=== PATIENT | female | born 1980 | race Caucasian/White ===

== ENCOUNTER 2017-05-23 17:55 | Emergency (ER) | payer OTHER ==
[2017-05-23] MEDS ORDERED: clonazePAM 0.5 MG TAB PO ONE (20:15)
--- NOTE | 2017-05-23 20:18 | PD ---
HPI Chief Complaint: Psychiatric Symptoms Time Seen by Provider: 20:15 Travel History International Travel<30 days: No Contact w/Intl Traveler<30days: No Traveled to known affect area: No History of Present Illness HPI 36-year-old female that presents to the ED for eval of psychiatric illness. Patient was Deepika acted after she apparently made statements that she didn't know how she was given Librium without her cat which per patient she unfortunately had to put down couple hours before being Deepika acted. Apparently was a family member state this seriously and called the ambulance. Patient states that she does have a history of anxiety and depression but she denies any suicidal ideation. Per patient she is just depressed because of the loss of her cat of 7 years. She denies any medical issues. She states that she is compliant with her medications. Per patient she does not know what's going on. She states that she did drink some alcohol today but she says that she had to come to help her nerves secondary to the loss of her cat. She has no other complaints. She is very tearful on exam. [facility] Past Medical History Anxiety: Yes Depression: Yes Social History Alcohol Use: Yes Tobacco Use: No Substance Use: No Allergies-Medications (Allergen,Severity, Reaction): Coded Allergies: Lortab (Verified Allergy, Mild, 08/31/04) Tylenol #3 (Verified Allergy, Mild, 08/31/04) No Known Allergies (Verified Allergy, Unknown, 08/31/04) Uncoded Allergies: NKA (Allergy, Unknown, 07/15/03) NKDA (Allergy, Unknown, 07/15/03) Review of Systems Except as stated in HPI: all other systems reviewed are Neg Physical Exam Narrative GENERAL: SKIN: Warm and dry. HEAD: Atraumatic. Normocephalic. EYES: Pupils equal and round. No scleral icterus. No injection or drainage. ENT: No nasal bleeding or discharge. Mucous membranes pink and moist. Tongue is midline. No uvula deviation. NECK: Trachea midline. No JVD. CARDIOVASCULAR: Regular rate and rhythm. No murmurs, S3, S4. RESPIRATORY: No accessory muscle use. Clear to auscultation. Breath sounds equal bilaterally. GASTROINTESTINAL: Abdomen soft, non-tender, nondistended. Hepatic and splenic margins not palpable. MUSCULOSKELETAL: Extremities without clubbing, cyanosis, or edema. No obvious deformities. Full range of motion of the upper and lower extremities bilaterally. 2+ pulses bilaterally. NEUROLOGICAL: Awake and alert. No obvious cranial nerve deficits. Motor grossly within normal limits. Five out of 5 muscle strength in the arms and legs. Normal speech. PSYCHIATRIC: Appropriate mood and affect; insight and judgment normal. Data Data Orders Complete Blood Count With Diff (05/23/17 19:57) Comprehensive Metabolic Panel (05/23/17 19:57) Urinalysis - C+S If Indicated (05/23/17 19:57) Ed Urine Pregnancytest Poc (05/23/17 19:57) Psych Screen (05/23/17 19:57) Drug Screen, Random Urine (05/23/17 19:57) Alcohol (Ethanol) (05/23/17 19:57) Clonazepam (Klonopin) (05/23/17 20:15) MDM Medical Decision Making Medical Screen Exam Complete: Yes Emergency Medical Condition: Yes Medical Record Reviewed: Yes Differential Diagnosis Depression versus suicidal ideation versus anxiety versus adjustment disorder versus mood disorder versus bipolar disorder versus schizophrenia versus paranoid disorder versus psychosis versus substance abuse versus alcohol abuse versus alcohol induced psychosis versus homicidality addition versus cutting versus personality disorder Narrative Course 36-year-old female that presents to the ED for evaluation of Poe act. Patient was properly examined and was found to have signs and symptoms consistent with appears to be grieving. No sign of acute distress. Patient denies suicidal ideation. Labs will be drawn. Patient will be medically clear. Okay to be seen by psych. Mental health screening was discussed with the patient. Diagnosis Primary Impression: Grief reaction Wilson Mejia May 23, 2017 20:18
[2017-05-23 20:56] LABS: AUTOMATED NEUTROPHIL # 9.2 TH/MM3 (1.8-7.7); BASOPHIL # 0.1 TH/MM3 (0-0.2); BASOPHIL % 0.7 % (0.0-2.0); EOSINOPHIL # 0.1 TH/MM3 (0-0.4); EOSINOPHIL % 0.7 % (0.0-4.0); HEMATOCRIT 47.1 % (35.0-46.0); HEMO FLAGS DIFF FINAL; LYMPH % 27.3 % (9.0-44.0); LYMPHOCYTE # 3.8 TH/MM3 (1.0-4.8); MEAN CELL VOLUME 87.5 FL (80.0-100.0); MEAN CORPUSCULAR HEMOGLOBIN 29.9 PG (27.0-34.0); MEAN CORPUSCULAR HGB CONC 34.2 % (32.0-36.0); MONO % 4.8 % (0.0-8.0); NEUT % 66.5 % (16.0-70.0); PLATELET COUNT 299 TH/MM3 (150-450); RED BLOOD COUNT 5.38 MIL/MM3 (4.00-5.30); RED CELL DISTRIBUTION WIDTH 14.3 % (11.6-17.2); WHITE BLOOD COUNT 13.8 TH/MM3 (4.0-11.0)
[2017-05-23 20:58] VITALS: BP 145/89; PULSE 100; RESP 17; O2SAT 99
[2017-05-23 21:01] LABS: BLOOD, URINE NEG (NEG); COMMENT (UR) CULT NOT INDICATED; CULTURE IF INDICATED CULT NOT INDICATED; GLUCOSE,URINE NEG (NEG); KETONE, URINE NEG (NEG); MUCUS URINE FEW /lpf (OCC); NITRITE,URINE NEG (NEG); PH, URINE 5.5 (5.0-8.5); SQUAMOUS EPITHELIAL CELL URINE 13 /hpf (0-5); URINE COLOR YELLOW (YELLW/STRAW)
[2017-05-23 21:05] LABS: AMPHETAMINE, URINE NEG (NEG); BARBITURATES, URINE NEG (NEG); COCAINE, URINE NEG (NEG)
[2017-05-23 21:15] LABS: ANION GAP 5 MEQ/L (5-15); AST (GOT) 15 U/L (15-37); BICARBONATE 26.6 MEQ/L (21.0-32.0); BLOOD UREA NITROGEN 8 MG/DL (7-18); CHLORIDE 107 MEQ/L (98-107); GLOMERULAR FILTRATION RATE 80 ML/MIN (>89); POTASSIUM 3.8 MEQ/L (3.5-5.1); SODIUM (NA) 139 MEQ/L (136-145)
[2017-05-23 21:16] LABS: ALT (GPT) 20 U/L (10-53)
[2017-05-23 21:18] LABS: ALKALINE PHOSPHATASE 63 U/L (45-117); TOTAL BILIRUBIN ADULT 0.4 MG/DL (0.2-1.0)
[2017-05-23 21:26] VITALS: TEMP 97.9
[2017-05-23] MEDS ORDERED: KLON2TAB PO (21:41)
--- NOTE | 2017-05-23 22:35 | PD ---
Physical Exam Narrative General: The patient is a well-developed well-nourished female in no acute distress Head and Neck exam: Head is normocephalic atraumatic. Neck: No palpable lymphadenopathy. No nuchal rigidity. No thyromegaly. Cardiovascular: Regular rate and rhythm without murmurs, gallops, or rubs. Lungs: Clear to auscultation bilaterally. No wheezes, rhonchi, or rales. Abdomen: Soft, without tenderness to palpation in all 4 quadrants of the abdomen. No guarding, rebound, or rigidity. Normal bowel sounds are audible. No tenderness on palpation of McBurney's point. Extremities: No clubbing, cyanosis, or edema. 2+ pulses in all 4 extremities. No calf tenderness on palpation. Back: No spinous process tenderness to palpation. No costovertebral angle tenderness to palpation. Neurologic Exam: Grossly nonfocal. Skin Exam: No rash noted. Intact skin that is warm and dry. Data Data Last Documented VS Vital Signs Date Time Temp Pulse Resp B/P Pulse Ox O2 Delivery O2 Flow Rate FiO2 05/23/17 21:26 97.9 05/23/17 20:58 100 17 145/89 99 Room Air Orders Complete Blood Count With Diff (05/23/17 19:57) Comprehensive Metabolic Panel (05/23/17 19:57) Urinalysis - C+S If Indicated (05/23/17 19:57) Ed Urine Pregnancytest Poc (05/23/17 19:57) Psych Screen (05/23/17 19:57) Drug Screen, Random Urine (05/23/17 19:57) Alcohol (Ethanol) (05/23/17 19:57) Clonazepam (Klonopin) (05/23/17 20:15) Labs Laboratory Tests Test 05/23/17 05/23/17 19:30 19:50 Urine Color YELLOW Urine Turbidity HAZY Urine pH 5.5 Urine Specific [place] 1.023 Urine Protein TRACE mg/dL Urine Glucose (UA) NEG mg/dL Urine Ketones NEG mg/dL Urine Occult Blood NEG Urine Nitrite NEG Urine Bilirubin NEG Urine Urobilinogen LESS THAN 2.0 MG/DL Urine Leukocyte Esterase SMALL Urine RBC 2 /hpf Urine WBC 3 /hpf Urine Squamous Epithelial 13 /hpf Cells Urine Mucus FEW /lpf Microscopic Urinalysis Comment CULT NOT INDICATED Urine Opiates Screen NEG Urine Barbiturates Screen NEG Urine Amphetamines Screen NEG Urine Benzodiazepines Screen POS Urine Cocaine Screen NEG Urine Cannabinoids Screen POS White Blood Count 13.8 TH/MM3 Red Blood Count 5.38 MIL/MM3 Hemoglobin 16.1 GM/DL Hematocrit 47.1 % Mean Corpuscular Volume 87.5 FL Mean Corpuscular Hemoglobin 29.9 PG Mean Corpuscular Hemoglobin 34.2 % Concent Red Cell Distribution Width 14.3 % Platelet Count 299 TH/MM3 Mean Platelet Volume 8.3 FL Neutrophils (%) (Auto) 66.5 % Lymphocytes (%) (Auto) 27.3 % Monocytes (%) (Auto) 4.8 % Eosinophils (%) (Auto) 0.7 % Basophils (%) (Auto) 0.7 % Neutrophils # (Auto) 9.2 TH/MM3 Lymphocytes # (Auto) 3.8 TH/MM3 Monocytes # (Auto) 0.7 TH/MM3 Eosinophils # (Auto) 0.1 TH/MM3 Basophils # (Auto) 0.1 TH/MM3 CBC Comment DIFF FINAL Differential Comment Sodium Level 139 MEQ/L Potassium Level 3.8 MEQ/L Chloride Level 107 MEQ/L Carbon Dioxide Level 26.6 MEQ/L Anion Gap 5 MEQ/L Blood Urea Nitrogen 8 MG/DL Creatinine 0.81 MG/DL Estimat Glomerular Filtration 80 ML/MIN Rate Random Glucose 85 MG/DL Calcium Level 8.8 MG/DL Total Bilirubin 0.4 MG/DL Aspartate Amino Transf 15 U/L (AST/SGOT) Alanine Aminotransferase 20 U/L (ALT/SGPT) Alkaline Phosphatase 63 U/L Total Protein 7.7 GM/DL Albumin 4.0 GM/DL Ethyl Alcohol Level 10 MG/DL [facility] Medical Record Reviewed: Yes Supervised Visit with MARLENA: Yes Interpretation(s) Laboratory Tests Test 05/23/17 05/23/17 19:30 19:50 Urine Turbidity HAZY Urine Leukocyte Esterase SMALL Urine Mucus FEW /lpf Urine Benzodiazepines Screen POS Urine Cannabinoids Screen POS White Blood Count 13.8 TH/MM3 Red Blood Count 5.38 MIL/MM3 Hemoglobin 16.1 GM/DL Hematocrit 47.1 % Neutrophils # (Auto) 9.2 TH/MM3 Estimat Glomerular Filtration 80 ML/MIN Rate Ethyl Alcohol Level 10 MG/DL Narrative Course I, Dr. De La Cruz, have reviewed the advance practice practitioner's documentation and am in agreement, met with the patient face to face, made the diagnosis, and the medical decision making was done by me. The patient was initially evaluated by David. Please see his complete history and physical. *My assessment and Findings: The patient is a 36-year-old female who presents to [facility] emergency Department under a Poe reportedly related to thoughts of harming herself after she had to euthanize her cat earlier today. The patient adamantly reports that she does not have any thoughts of harming herself or anyone else. She reports that she does have a history of anxiety and depression, however it is well managed on medication. The patient was initially evaluated by the physician mortgage loan assistant who felt that the Poe act should be rescinded. A psychiatric screen was ordered and the psychiatric screener agreed, therefore she spoke to Dr. Hawkins, the psychiatrist on-call regarding this. He also recommended rescinding the Poe act. Thus, it was requested that I evaluate the patient and write the order to rescind the Poe act. I also agreed that the Poe act was not necessary. The patient resides with her who will be picking her up. During the course of the patients emergency department visit, the patients history, examination, and differential diagnosis were reviewed with the patient. The patient had IV access obtained and blood work sent for analysis. The patients laboratory studies were reviewed and remarkable for a white count of 13.8, hemoglobin 16.1, platelets 299 with a normal differential, CMP reveals a GFR of 80, urinalysis is unremarkable. Urine drug screen is positive for benzodiazepines, cannabinoids. Alcohol level is 10. The patient will be discharged home after the patient obtains a ride home with her . Diagnosis Primary Impression: Grief reaction Referrals: Primary Care Physician Psychiatrist Patient Instructions: General Instructions, Grief and Loss (ED) Med/Other Pt SpecificInfo: No Change to Meds Disposition: 01 DISCHARGE HOME Condition: Stable Sneha De La Cruz MD May 23, 2017 22:35
== END 2017-05-23 22:47 | disposition home or self-care (01) ==
LOC: NEPJ 17:55
DX: F43.20 Adjustment disorder, unspecified (principal); F41.9 Anxiety disorder, unspecified; F32.9 Major depressive disorder, single episode, unspecified; Z88.5 Allergy status to narcotic agent; Z88.6 Allergy status to analgesic agent
CPT/HCPCS: 80053; 80307; 81001; 84703; 85025; 99284